=== PATIENT | female | born 1955 | race Caucasian/White ===

== ENCOUNTER 2017-08-14 03:41 | Emergency (ER) | payer BC ==
[~2017-08-14] VITALS: Ht 157.5 cm; Wt 56.7 kg
--- NOTE | 2017-08-14 03:55 | NUR ---
PT AAOX4. SPEAKING IN COMPLETE SENTENCES. SPEECH IS CLEAR. RESPONSIVE TO VERBAL & TACTILE STIMULI. ABLE TO MAKE NEEDS KNOWN. PT AMBULATED TO ER WITH STEADY GAIT ACCOMPANIED BY . PT HAS C/O MECHANICAL FALL WITH HEAD INJURY. 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 SHE STATES SHE FELL BACKWARDS HITTING THE POSTERIOR LEFT SIDE OF HER HEAD ON THE TILE FLOOR. PATIENT NOTED WITH AREA OF OPEN SKIN 2 INCHES LONG TO THE POSTERIOR LEFT ASPECT OF HEAD WITH ACTIVE MILD BLEEDING. DRESSING AND DIRECT PRESSURE APPLIED TO THE AREA AT THIS TIME. PATIENT DENIES LOC , DENIES N/V, DENIES HEADACHE. PATIENTS PUPILS NOTED WITH PERRLA, BRISK RESPONSE , 3MM IN SIZE BILAT. PT RESPIRATIONS EVEN AND UNLABORED. NO SOB OR CONGESTION. SAO2 @ 100% ON RA. PT DENIES CHEST PAIN. NSR ON MONITOR. NO /GI DISTRESS NOTED. NO FURTHER TRAUMA/INJURY NOTED. PT DENIES INJURIES TO EXTREMITIES OR TORSO AT THIS TIME. NO C/O NECK STIFFNESS/LIMITED MOBILITY AT THIS TIME. BED IN LOWEST POSITION. WHEELS LOCKED. SIDE RAILS UP X 2. CALL LIGHT WITHIN REACH. ALL PT'S NEEDS ATTENDED & MET. AT BEDSIDE. WILL CTM.
--- NOTE | 2017-08-14 04:18 | NUR ---
@1573 -ER MD AT BEDSIDE FOR PATIENT EVALUATION. @8319 -SUTURE SET UP AT BEDSIDE PER ER MD REQUEST. PER DR. FLORES VERBAL ORDER: 4.0 PROLENE, LACERATION REPAIR TRAY, LIDOCAINE 1% PLACED AT BEDSIDE. PATIENT IN BED, NO ACUTE DISTRESS NOTED.AWAITING MD ARRIVAL FOR SUTURE PLACEMENT.
--- NOTE | 2017-08-14 04:21 | NUR ---
DR FLORES AT BEDSIDE FOR SUTURE PLACEMENT
[2017-08-14] MEDS ORDERED: LIDOCAINE HCL 1% 20 ML VIAL IJ ONE (04:30)
[2017-08-14] MEDS ORDERED: NEOMY/BACITRA/POLYMYXIN B OINT UD PACKET TP ONE ×2 (04:51→05:00)
--- NOTE | 2017-08-14 05:05 | NUR ---
Patient discharged to home in stable conditon. Written and verbal after care instructions given. Patient verbalizes understanding of instructions. Patient left ER and walks in steady gait. Pt accompanied by . Pt has no further complaints at this time.
[2017-08-14 05:07] VITALS: BP 122/67
== END 2017-08-14 05:08 | disposition home or self-care (01) ==
LOC: ER 03:49
DX: S01.01XA Laceration without foreign body of scalp, initial encounter (principal); I10 Essential (primary) hypertension; E78.5 Hyperlipidemia, unspecified; Z88.2 Allergy status to sulfonamides; W01.198A Fall on same level from slipping, tripping and stumbling with subsequent striking against other object, initial encounter; Y93.89 Activity, other specified; Y92.89 Other specified places as the place of occurrence of the external cause; Y99.8 Other external cause status
CPT/HCPCS: A4663